=== PATIENT | male | born 1995 | race Caucasian/White ===

== ENCOUNTER 2017-02-08 18:01 | Inpatient (IN) | payer BC ==
[~2017-02-08] VITALS: Ht 193 cm; Wt 106.8 kg
[~2017-02-08 18:01] MED LIST: IBUP800T25 PO
[2017-02-08 18:56] VITALS: Ht 193 cm; Wt 106.8 kg
[2017-02-08] MEDS ORDERED: VANCOMYCIN IV PER PHARMACY XX SCH (20:00)
[2017-02-08] MEDS ORDERED: ACETAMINOPHEN 500 MG TAB PO PRN (20:00)
[2017-02-08] MEDS ORDERED: ZOLPIDEM 5 MG TAB PO PRN (20:00)
[2017-02-08] MEDS ORDERED: VANCOMYCIN 1 GM (PMX) 250 ML IVPB SCH (20:00)
[2017-02-08 20:11] VITALS: BP 129/65; RESP 19
[2017-02-08 20:41] LABS: BASOPHILS % 0.2 % (0.0-2.0); EOSINOPHILS # 0.1 10^3/ul (0.0-0.5); EOSINOPHILS % 0.8 % (0.0-7.0); HEMATOCRIT 39.8 % (42.0-52.0); HEMOGLOBIN 13.9 g/dl (14.0-18.0); LYMPHOCYTES # 2.5 10^3/ul (0.8-2.9); LYMPHOCYTES % 22.2 % (15.0-51.0); MEAN CORPUSCULAR HEMOGLOBIN 33.1 pg (29.0-33.0); MEAN CORPUSCULAR HGB CONC 34.9 g/dl (32.0-37.0); MEAN CORPUSCULAR VOLUME 94.8 fl (82.0-101.0); MEAN PLATELET VOLUME 10.8 fl (7.4-10.4); MONOCYTE # 1.3 10^3/ul (0.3-0.9); MONOCYTES % 11.4 % (0.0-11.0); NEUTROPHIL # 7.2 10^3/ul (1.6-7.5); NEUTROPHILS % 65.1 % (39.0-77.0); PLATELET COUNT 229 10^3/UL (140-415); RED CELL DISTRIBUTION WIDTH 11.8 % (11.5-14.5); WHITE BLOOD COUNT 11.1 10^3/ul (4.8-10.8)
[2017-02-08 21:03] LABS: CALCIUM 9.4 mg/dl (8.4-10.2); CREATININE 0.95 mg/dl (0.61-1.24); POTASSIUM 4.4 mmol/L (3.5-5.1)
[2017-02-08] MEDS ORDERED: VANCOMYCIN 1 GM in NS 250 ML IVPB ONE (22:00)
[2017-02-08] MEDS: SOD CHLORIDE 0.45% 1,000 ML IV SCH (22:15)
[2017-02-09] MEDS ORDERED: VANCOMYCIN 1 GM in NS 250 ML IVPB ONE
[2017-02-09] MEDS ORDERED: PENDING SANTYL ORDER FOR WOUND CARE XX PRN (01:30)
[2017-02-09 02:17] VITALS: BP 112/71; RESP 18
[2017-02-09] MEDS: VANCOMYCIN 1.25 GM in SOD CHLORIDE 0.9% 250 ML IVPB SCH ×3 (05:28→22:38)
[2017-02-09 08:00] VITALS: BP 130/62; RESP 20
--- NOTE | 2017-02-09 12:31 | HP ---
DATE OF ADMISSION: 02/08/2017 CHIEF COMPLAINT, HISTORY OF PRESENT ILLNESS: The patient is a 21- year-old gentleman who is well known to me for the past 3 years with a history of progressive pain in the left knee, and he had an insect bite to the left knee the last week of January and I saw him in the office on 02/06/2017 and he had moderate cellulitis with an abrasion. He was begun on a course of Bactrim DS b.i.d., Keflex q.i.d. and the patient continued to have increasing pain and swelling of the left knee with erythema extending up care home up to the thigh with swelling with some difficulty walking with low-grade fever. He was evaluated in office on 02/08/2017 and was directly admitted for failed outpatient treatment of cellulitis, left knee. REVIEW OF SYSTEMS: HEENT: No history of headache, focal weakness or numbness. EYES: No blurry vision or glaucoma. ENT: Noncontributory. NECK: No history of thyroid disease. CHEST: No bronchitis, atrial fibrillation or asthma. HEART: No PND, orthopnea, palpitations. GASTROINTESTINAL: No constipation, diarrhea, change of bowel habits. GENITOURINARY: No dysuria, hematuria, kidney stones. FAMILY HISTORY: Positive for diabetes mellitus in both parents. HABITS: Does not smoke or drink at this time. PAST MEDICAL HISTORY: The patient has had mild hypertension for which he had been started on losartan. His blood glucose levels have been in the normal range along with A1c as an outpatient. ALLERGIES: NO KNOWN ALLERGIES. MEDICATIONS: As noted, losartan 50 mg p.o. daily. PHYSICAL EXAMINATION: GENERAL APPEARANCE: The patient is an average built male who appears ill. VITAL SIGNS: Afebrile, blood pressure 130/90, respiratory 20 per minute. HEENT: Head normocephalic. No pallor, cyanosis, or icterus. Tongue is moist. NECK: Supple. No thyromegaly, bruits, or lymphadenopathy. CHEST: Clinically clear. HEART: S1, S2 audible. No definite gallops. ABDOMEN: Soft, nontender. No hepatosplenomegaly. EXTREMITIES: Moderate erythema on the anterior aspect of the left knee with an abrasion with purulent discharge. Erythema extending half way up the left thigh with tenderness. Homans' sign is negative. NEUROLOGIC: No localizing or lateralizing signs. RECTAL EXAM: Deferred per patient request. LABORATORY DATA: WBC count 11.1, hematocrit 39.8, BUN 13, creatinine 0.95, potassium 4.2. IMPRESSION: 1. Cellulitis of the left knee, failed outpatient treatment. Doubt any joint involvement or septic arthritis. 2. Mild hypertension. PLAN: Will obtain culture and sensitivity of the wound and start the patient on intravenous vancomycin. Wound care to include cleaning with hydrogen peroxide, applying Bactroban and dry dressing daily. Will obtain blood cultures as well. Observe for sepsis and closely follow along dictation. Dictated By: Hamitlon Ibarra MD /sarah/nuvia /Document#: [id number]
[2017-02-09] MEDS: MUPIROCIN 2% 22 GM OINT TOP SCH (14:34)
[2017-02-09] MEDS: HYDROGEN PEROXIDE 118 ML TOP SCH (14:35)
[2017-02-09] MEDS: SOD CHLORIDE 0.45% 1,000 ML IV SCH (15:55)
[2017-02-09 20:32] VITALS: BP 139/64; RESP 18
[2017-02-10 02:57] VITALS: BP 124/77; RESP 18
[2017-02-10] MEDS: SOD CHLORIDE 0.45% 1,000 ML IV SCH ×2 (03:06→14:29)
[2017-02-10] MEDS: VANCOMYCIN 1.25 GM in SOD CHLORIDE 0.9% 250 ML IVPB SCH ×3 (05:27→21:00)
[2017-02-10 08:20] VITALS: BP 117/60; RESP 18
--- NOTE | 2017-02-10 09:29 | PN ---
DATE: 02/10/2017 SUBJECTIVE DATA: The patient continues to have pain in the left knee, but much improved since yesterday. Wounds being cleaned with hydrogen peroxide. Bactroban being applied. OBJECTIVE DATA: VITAL SIGNS: Temperature 97.3, blood pressure 117/60, O2 sat 99 percent. CHEST: Clinically clear. ABDOMEN: Soft, nontender. No hepatosplenomegaly. EXTREMITIES: Decreased erythema above the left knee. Decreased swelling left knee. Homans negative. Wound culture growing Staphylococcus aureus. IMPRESSION: Cellulitis, left knee. No suggestion of septic arthritis. Mild hypertension. PLAN: We will continue local wound care and IV vancomycin and re- evaluate the patient in the morning. Dictated By: Hamilton Ibarra MD /sarah/wayne /Document#: [id number]
[2017-02-10] MEDS: MUPIROCIN 2% 22 GM OINT TOP SCH (11:23)
[2017-02-10] MEDS: HYDROGEN PEROXIDE 118 ML TOP SCH (11:24)
[2017-02-10 15:14] VITALS: BP 127/64; RESP 18
[2017-02-10 19:45] VITALS: BP 127/56; RESP 20
[2017-02-11 02:13] VITALS: BP 111/55; RESP 16
[2017-02-11] MEDS: VANCOMYCIN 1.25 GM in SOD CHLORIDE 0.9% 250 ML IVPB SCH ×3 (05:12→23:18)
[2017-02-11 06:59] LABS: CREATININE 0.97 mg/dl (0.61-1.24)
[2017-02-11] MEDS: SOD CHLORIDE 0.45% 1,000 ML IV SCH ×2 (07:42→15:41)
[2017-02-11 08:22] VITALS: BP 122/61; RESP 16
[2017-02-11] MEDS: HYDROGEN PEROXIDE 118 ML TOP SCH (09:00)
[2017-02-11] MEDS: MUPIROCIN 2% 22 GM OINT TOP SCH ×3 (11:39→23:19)
[2017-02-11 14:40] VITALS: BP 128/77; RESP 16
--- NOTE | 2017-02-11 16:35 | PN ---
DATE: 02/11/2017 SUBJECTIVE DATA: The patient has less pain of left knee. No nausea or vomiting. No fever or chills. PHYSICAL EXAMINATION: VITAL SIGNS: The patient is afebrile, temperature 97.6, blood pressure 120/61, O2 sat 98 percent. CHEST: Chest is clinically clear. EXTREMITIES: The left knee with decreased erythema, still purulent discharge from the ulcer noted on Gram stain and wound culture methicillin-resistant Staphylococcus aureus IMPRESSION: 1. Cellulitis, left knee, no suggestion of septic arthritis. 2. Mild hypertension. 3. Infection secondary to methicillin-resistant Staphylococcus aureus. PLAN: Would check nares for MRSA. Start the patient on decolonizing measures, continue IV vancomycin. If stable over next 24 hours, consider discharge in a.m. Dictated By: Hamilton Ibarra MD /sarah/meliza /Document#: [id number]
[2017-02-11 20:00] VITALS: BP 132/76; RESP 20
[2017-02-12 02:00] VITALS: BP 140/80; RESP 20
[2017-02-12] MEDS: VANCOMYCIN 1.25 GM in SOD CHLORIDE 0.9% 250 ML IVPB SCH ×2 (05:07→15:59)
[2017-02-12 08:20] VITALS: BP 138/83; RESP 16
[2017-02-12] MEDS: HYDROGEN PEROXIDE 118 ML TOP SCH (09:00)
[2017-02-12] MEDS: SOD CHLORIDE 0.45% 1,000 ML IV SCH (12:18)
[2017-02-12] MEDS: MUPIROCIN 2% 22 GM OINT TOP SCH ×2 (12:58)
[2017-02-12 14:45] VITALS: BP 133/79; RESP 16
--- NOTE | 2017-02-12 15:05 | DS ---
DATE OF ADMISSION: 02/08/2017 DATE OF DISCHARGE: 02/12/2017 FINAL DIAGNOSES: 1. Cellulitis of the left knee, failed outpatient treatment with MRSA. 2. No clinical evidence of septic arthritis. 3. Mild hypertension. HISTORY OF PRESENT ILLNESS: The patient is a 21-year-old gentleman well known to me from the past 3 years with progressive pain in the left knee after an insect bite to the left knee last week of January. He was seen in my office on 02/06 and was begun on a course of Bactrim DS b.i.d. along with Keflex 500 q.i.d. The patient continued continue to have increasing pain and swelling of the left knee with erythema and difficulty walking and he was evaluated in my office on 02/08/2017 and was directly admitted for failed outpatient treatment. HOSPITAL COURSE: He was begun on intravenous vancomycin. Wound cultures grew MRSA. Nares were negative for MRSA. The wound had slightly improved with decreasing erythema and swelling and he was discharged home on much improved condition on Bactrim DS 1 tablet b.i.d. for 7 days. Advised to continue wound care dressing with Bactroban after cleaning with hydrogen peroxide. Follow up in my office next 3 days. Dictated By: Hamilton Ibarra MD /sarah/ /Document#: [id number]
== END 2017-02-12 18:30 | disposition home or self-care (01) | DRG 603 ==
LOC: PP2 18:11
PROVIDERS: ADMIT Internal Medicine; ATTEND Internal Medicine
DX: L03.116 Cellulitis of left lower limb (principal); I10 Essential (primary) hypertension; S80.212A Abrasion, left knee, initial encounter; B95.62 Methicillin resistant Staphylococcus aureus infection as the cause of diseases classified elsewhere; S80.262A Insect bite (nonvenomous), left knee, initial encounter; W57.XXXA Bitten or stung by nonvenomous insect and other nonvenomous arthropods, initial encounter; Y93.89 Activity, other specified; Y92.89 Other specified places as the place of occurrence of the external cause; Y99.8 Other external cause status
CPT/HCPCS: 80048; 80202; 82565; 84520; 85025; 87040; 87070; J3370; J7050

== ENCOUNTER 2017-07-14 23:46 | Emergency (ER) | END 2017-07-15 01:45 | disposition home or self-care (01) ==

== ENCOUNTER → 2017-10-11 | Outpatient (CLI) | END | disposition home or self-care (01) ==

== ENCOUNTER 2017-12-14 20:15 | Emergency (ER) | END 2017-12-14 21:24 | disposition home or self-care (01) ==

== ENCOUNTER 2018-12-16 16:35 | Emergency (ER) | payer BC ==
[~2018-12-16] VITALS: Ht 195.6 cm; Wt 120.0 kg
[~2018-12-16 16:35] MED LIST changes: +BACI28.34 TOP; +IBUP-1542 PO; -IBUP800T25 PO
[2018-12-16 16:39] VITALS: BP 157/74; PULSE 82; RESP 18; Ht 195.6 cm; Wt 120.0 kg
--- NOTE | 2018-12-16 17:10 | ERD ---
ER Documentation Chief Complaint Chief Complaint RIGHT HAND LAC INBETWEEN 1ST & 2ND DIGIT, MUSCLE & TENDON NOTED HPI Patient is a 23-year-old male with no past medical history presents ER for concern of a laceration to his right hand between his first and second digits. Patient states he was at work when he accidentally dropped the knife while cutting vegetables. Patient picked up the knife on the sharp edge and cut his hand. Patient is right-hand dominant. Patient states his last tetanus shot was 2 years ago. Patient is able to move all digits without any difficulty. ROS All systems reviewed and are negative except as per history of present illness. Medications Home Meds Active Scripts Ibuprofen* (Motrin*) 600 Mg Tab, 600 MG PO Q6, #30 TAB Prov:LOKI URIBE 12/14/17 Ibuprofen* (Motrin*) 600 Mg Tab, 600 MG PO Q6, #30 TAB Prov:MELIZA LOPEZ PA-C 07/15/17 Bacitracin* (Bacitracin Zinc Oint*) 28.35 Gm Oint, 1 APPLIC TOP BID, #1 TUB APPLI TO Prov:MELIZA LOPEZ PA-C 07/15/17 Allergies Allergies: Coded Allergies: No Known Drug Allergies (Unverified Allergy, Unknown, 12/14/17) PMhx/Soc History of Surgery: No Anesthesia Reaction: No Hx Neurological Disorder: No Hx Respiratory Disorders: No Hx Cardiac Disorders: Yes (HTN) Hx Psychiatric Problems: No Hx Alcohol Use: Yes (OCCASIONAL) Hx Substance Use: Yes (MARIJUANA) Hx Tobacco Use: Yes FmHx Family History: No diabetes Physical Exam Vitals Vital Signs Date Temp Pulse Resp B/P (MAP) Pulse Ox O2 O2 Flow FiO2 Time Delivery Rate 12/16/18 98.0 82 18 157/74 98 16:39 (101) Physical Exam GENERAL: Well-developed, well-nourished male. Appears in no acute distress. HEAD: Normocephalic, atraumatic. EYES: Pupils are equally reactive bilaterally. EOMs grossly intact. No conjunctival erythema. EXTREMITIES: Equal pulses bilaterally. No peripheral clubbing, cyanosis or edema. No unilateral leg swelling. NEUROLOGIC: Alert and oriented. Moving all four extremities without any difficulty. Normal speech. Steady gait. SKIN: 2 cm linear laceration noted in the first webspace of the right hand. No active bleeding. Patient is able to bend first and second digits without any difficulty. No visualization of bony structures. Results 24 hrs Current Medications Medications Dose Sig/Flakita Start Time Status Last (Trade) Ordered Route PRN Stop Time Admin Dose Reason Admin Lidocaine 20 ml ONCE ONCE 12/16/18 DC (Xylocaine SC 17:30 12/16/18 1% (Mdv) 20 17:31 ml) Procedures/MDM ED COURSE: The patient was stable throughout ED course. I kept the patient and/or family informed of laboratory and diagnostic imaging results throughout the ED course. PROCEDURES: Laceration Repair: The patient was verbally consented prior to procedure. Patient was explained the risks, benefits and alternatives to this procedure. Length: 3 cm Irrigation: Thorough irrigation was performed with normal saline and adequate pressure. Inspection: The wound was thoroughly explored and no foreign bodies, deep tissue, tendon or structural injuries were noted. Anesthesia: 1% lidocaine no epi Repair: The area was prepared and draped in the usual sterile manner with the wound exposed. 4 Ethilon 4-0 sutures were placed with good wound closure and wound approximation. Bleeding was minimal. The patient tolerated the procedure well with no complications. The wound was dressed with bacitracin and sterile gauze. The patient was neurovascularly intact post-procedure. Post-procedural wound care was discussed with the patient. MEDICAL DECISION MAKING: This is a 23-year-old male who presents the ER for concerns of a laceration in between his right hand first and second digits.. Vital signs were reviewed. Patient was afebrile. The wound was cleansed thoroughly and closed using sutures . The patient had good wound closure and wound approximation. Patient tolerated wound closure without any complications. Tetanus is up-to-date. DISCHARGE: At this time, the patient is stable for discharge and outpatient management. Post-procedural wound care was discussed with the patient. The patient has been advised to return to the ER in 2 days for a wound check and then again in [] days for suture removal. I have instructed the patient to promptly return to the ER for any new or worsening symptoms including increasing pain, fever, warmth, redness or swelling. The patient and/or family expressed understanding of and agreement with this plan. All questions were answered. Home care instructions were provided. Disclaimer: Inadvertent spelling and grammatical errors are likely due to EHR/dictation software use and do not reflect on the overall quality of patient care. Also, please note that the electronic time recorded on this note does not necessarily reflect the actual time of the patient encounter. Departure Diagnosis: Primary Impression: Laceration Condition: Fair Patient Instructions: Laceration, Hand Referrals: MAGO VALENTINO MD (PCP) Additional Instructions: Wound recheck in 2 days. Call your primary care doctor TOMORROW for an appointment during the next 1-2 days.See the doctor sooner or return here if your condition worsens before your appointment time. JESSICA ROWE PA-C Dec 16, 2018 17:10
[2018-12-16] MEDS ORDERED: LIDOCAINE 1% (MDV) 20 ML INJ SC ONE (17:30)
== END 2018-12-16 17:45 | disposition home or self-care (01) ==
LOC: FTE 16:35
DX: S61.411A Laceration without foreign body of right hand, initial encounter (principal); I10 Essential (primary) hypertension; W26.0XXA Contact with knife, initial encounter; Y92.9 Unspecified place or not applicable

== ENCOUNTER 2018-12-25 09:49 | Emergency (ER) | payer OTHER ==
[~2018-12-25] VITALS: Ht 195.6 cm; Wt 108.7 kg
[2018-12-25 10:04] VITALS: BP 148/92; PULSE 105; RESP 18; Ht 195.6 cm; Wt 108.7 kg
--- NOTE | 2018-12-25 13:17 | ERD ---
ER Documentation Chief Complaint Chief Complaint suture removal right hand about 7 days old HPI 23-year-old male presenting for suture removal of the right hand. Patient states he cut himself with a knife 7 days ago when working. He is right-hand dominant. He denies any numbness or tingling and has no limitation of movement to the digits. Denies other medical problems. NKDA. Surgical history denies. Social history denies ROS All systems reviewed and are negative except as per history of present illness. Medications Home Meds Active Scripts Ibuprofen* (Motrin*) 600 Mg Tab, 600 MG PO Q6, #30 TAB Prov:LOKI URIBE 12/14/17 Ibuprofen* (Motrin*) 600 Mg Tab, 600 MG PO Q6, #30 TAB Prov:MELIZA LOPEZ PA-C 07/15/17 Bacitracin* (Bacitracin Zinc Oint*) 28.35 Gm Oint, 1 APPLIC TOP BID, #1 TUB APPLI TO Prov:MELIZA LOPEZ PA-C 07/15/17 Allergies Allergies: Coded Allergies: No Known Drug Allergies (Unverified Allergy, Unknown, 12/14/17) PMhx/Soc Medical and Surgical Hx: pt denies Surgical Hx History of Surgery: No Anesthesia Reaction: No Hx Neurological Disorder: No Hx Respiratory Disorders: No Hx Cardiac Disorders: Yes (HTN) Hx Psychiatric Problems: No Hx Alcohol Use: No Hx Substance Use: No Hx Tobacco Use: No Smoking Status: Never smoker FmHx Family History: No diabetes, No coronary disease, No other Physical Exam Vitals Vital Signs Date Temp Pulse Resp B/P (MAP) Pulse Ox O2 O2 Flow FiO2 Time Delivery Rate 12/25/18 98.2 105 18 148/92 98 10:04 (110) Physical Exam GENERAL: The patient is well-appearing, well-nourished, in no acute distress CHEST: Clear to auscultation bilaterally. There are no rales, wheezes or rhonchi. HEART: Regular rate and rhythm. No murmurs, clicks, rubs or gallops. EXTREMITIES: Equal pulses bilaterally. There is no peripheral clubbing, cyanosis or edema. No focal swelling or erythema. Full range of motion. NEUROLOGIC: Alert and oriented. Cranial nerves II through XII intact. Motor strength in all 4 extremities with 5 out of 5 strength. Sensation grossly intact. SKIN: Laceration site noted to the interdigital swab spacings of the first and second digit. No dehiscence or surrounding erythema. No purulence. Procedures/MDM ER course: Sutures removed without complication. MDM: 23-year-old male presenting for suture removal of the right hand. I have low suspicion for wound infection or complication secondary to recent suture application. Patient is sutures removed without comp location. Patient is disc harged with supportive medications. All questions answered at discharge Departure Diagnosis: Primary Impression: Encounter for removal of sutures Condition: Stable Patient Instructions: Suture Removal, No Complication Referrals: MAGO VALENTINO MD (PCP) Additional Instructions: FOLLOW UP WITH YOUR PRIMARY CARE PHYSICIAN TOMORROW.Return to this facility if you are not improving as expected. KITTY RUIZ PA-C Dec 25, 2018 13:17
== END 2018-12-25 10:47 | disposition home or self-care (01) ==
LOC: FTE 09:49
DX: Z48.02 Encounter for removal of sutures (principal); I10 Essential (primary) hypertension
CPT/HCPCS: 99281